=== PATIENT | male | born 1970 | race Caucasian/White ===

== ENCOUNTER 2018-08-02 10:07 | Emergency (ER) | payer BC ==
[~2018-08-02] VITALS: Ht 167.6 cm; Wt 84.9 kg
[2018-08-02 10:10] VITALS: Ht 167.6 cm; Wt 84.9 kg
[2018-08-02 13:25] LABS: CALCIUM 8.7 mg/dL (8.5-10.1); CARBON DIOXIDE 27.8 mmol/L (21-32); CHLORIDE SERUM 103 mmol/L (98-107); GFR1 > 60 mL/min; GLUCOSE SERUM 100 mg/dL (74-106); POTASSIUM SERUM 3.9 mmol/L (3.5-5.1); SODIUM SERUM 140 mmol/L (136-145)
[2018-08-02 13:30] LABS: ALKALINE PHOSPHATASE 73 U/L (46-116); ALT/SGPT 73 U/L (16-63); AST/SGOT 31 U/L (15-37); BILIRUBIN TOTAL 0.43 mg/dL (0.20-1.00); TOTAL PROTEIN, SERUM 7.9 g/dL (6.4-8.2)
[2018-08-02 13:34] LABS: BASOPHIL % 0.1 % (0-2); PLATELET COUNT 198 x10^3mcL (130-400); RED CELL DISTRIBUTION WIDTH 12.4 % (11.5-14.5)
[2018-08-02 16:17] VITALS: BP 103/74
== END 2018-08-02 16:17 | disposition home or self-care (01) ==
LOC: ED 10:07
PROVIDERS: Emergency Medicine
DX: R05 Cough (principal); R07.89 Other chest pain; R06.2 Wheezing; F17.200 Nicotine dependence, unspecified, uncomplicated
CPT/HCPCS: 36415; 85378; 99406; J7030; Q0092